=== PATIENT | male | born 1965 | race Caucasian/White ===

== ENCOUNTER 2021-08-08 02:10 | Day surgery (SDC) | payer OTHER, SELFPAY ==
[2021-07-25 14:37] VITALS: BMI 28.7
--- NOTE | 2021-08-08 08:16 | P.PNAN_ITS ---
Anes - Initial Pre Proc Eval Procedure: Operation Date: 08/08/21 09:30 Proposed Procedures p Screening Colonoscopy - Girish Chauhan MD Date/Time: 08/08/21 08:16 Surgeon: Girish Chauhan MD Pre Op Diagnosis: family hx of colon ca Patient Data Age: 55 Gender: M Height: 1.78 m Weight: 90.9 kg Allergies Allergy/AdvReac Type Severity Reaction Status Date / Time meperidine Allergy Unknown Unknown Verified 08/08/21 08:40 Home Medications Medication Instructions Recorded Confirmed Type aspirin 81 mg tablet,delayed 81 mg PO DAILY 11/29/20 07/26/21 History release atorvastatin 10 mg tablet 10 mg PO DAILY #90 tablet 03/07/21 07/26/21 Rx nicotine 14 mg/24 hr daily 1 patch TRANSDERMAL DAILY #84 ea 07/27/21 Rx transdermal patch Patient hx anesthesia problems: none Family hx anesthesia problems: none Results Review: All pre-operative results and documents have been reviewed as part of the pre-operative evaluation. [facility] Past Medical History Medical History (Updated 08/08/21 @ 09:15 by Girish Chauhan MD) Arthritis Cigarette smoker Hyperlipidemia Other and unspecified hyperlipidemia Overweight (BMI 25.0-29.9) Smoker TIA (transient ischemic attack) Family History Family History Mother Patient's mother is in good health Sibling Patient's sister is in good health Patient's brother is in good health Father Cancer Other Asthma Social History Social History Smoking packs per day: 1 Smoking cigarettes per day: 20.0 Years smoked: 35 Smoking pack-years: 35.00 Smoking status: Current every day smoker Tobacco type: cigarettes Second hand tobacco smoke exposure: No Smoking end date: 09/24/18 Alcohol intake: current Alcohol use details: every day Substance use: never Substance use type: does not use Living arrangements: with family Spiritual care concerns: No Anes - Eval Final PreProcedure Day of Procedure 08/08/21 08:16 Patient weight: overweight Heart: regular rate and rhythm Lungs: clear to auscultation and normal air movement Airway: Mallampati scale class II Neurological: alert and oriented Last oral intake: >/= 8 hours ASA classification: III Emergent: no Anesthetic plan: proceed Anesthesia type and monitoring: general GIVS Results Review: All pre-operative results and documents have been reviewed as part of the pre-operative evaluation. Informed Consent: The patient's anesthetic plan and its attendant risks and benefits were discussed with the patient/family/POA. Questions were solicited and answers provided to the satisfaction of the patient/family/POA.
[2021-08-08 08:41] VITALS: BP 112/81; PULSE 90; RESP 20; TEMP 36.3; O2SAT 97; BMI 28.0
[2021-08-08] MEDS: LACTATED RINGERS 1,000 ML 150 ML IV CONT (08:48)
--- NOTE | 2021-08-08 09:14 | WPDGICN ---
Assessment and Plan Assessment and plan (1) Family hx of colon cancer: Code(s): Z80.0 - Family history of malignant neoplasm of digestive organs Status: Acute Assessment and Plan: Patient's father had rectal cancer at age 74. Plan is for patient have screening colonoscopy now and consider this at 5 year intervals in the future. (2) Family history of colonic polyps: Code(s): Z83.71 - Family history of colonic polyps Status: Acute Assessment and Plan: Patient's brother was identified as having colon polyps. Also suggest the patient should continue screening at 5 year intervals. GI Consult Note Consult date/time: 08/08/21 09:14 HPI: Jaylen Tenorio is a 55 year old male Presents for screening colonoscopy. Patient's father had rectal cancer at age 74. Patient reports that his own weight appetite bowel movements are normal. He denies abdominal pain. He has had no bleeding. Reports having had a colonoscopy 10 years ago that was unremarkable. Reports that his brother has been identified as having colon polyps. Patient presents today for screening colonoscopy. Review of Systems Review of Systems: All systems reviewed & are unremarkable except as noted in HPI and below PMFSH Past Medical History Medical History (Updated 08/08/21 @ 09:15 by Girish Chauhan MD) Arthritis Cigarette smoker Hyperlipidemia Other and unspecified hyperlipidemia Overweight (BMI 25.0-29.9) Smoker TIA (transient ischemic attack) Family History Family History Mother Patient's mother is in good health Sibling Patient's sister is in good health Patient's brother is in good health Father Cancer Other Asthma Social History Social History Smoking packs per day: 1 Smoking cigarettes per day: 20.0 Years smoked: 35 Smoking pack-years: 35.00 Smoking status: Current every day smoker Tobacco type: cigarettes Second hand tobacco smoke exposure: No Smoking end date: 09/24/18 Alcohol intake: current Alcohol use details: every day Substance use: never Substance use type: does not use Living arrangements: with family Spiritual care concerns: No Meds Home Medications and Allergies Home Medications Medication Instructions Recorded Confirmed Type aspirin 81 mg tablet,delayed 81 mg PO DAILY 11/29/20 07/26/21 History release atorvastatin 10 mg tablet 10 mg PO DAILY #90 tablet 03/07/21 07/26/21 Rx nicotine 14 mg/24 hr daily 1 patch TRANSDERMAL DAILY #84 ea 07/27/21 Rx transdermal patch Allergies Allergy/AdvReac Type Severity Reaction Status Date / Time meperidine Allergy Unknown Unknown Verified 08/08/21 08:40 Vital Signs Vital Signs - 24 hr 08/08/21 08:41 Temperature 97.3 F L Pulse Rate 90 Respiratory Rate 20 Blood Pressure 112/81 Pulse Oximetry 97 Exam Narrative: Physical exam reveals patient to be alert. Vital signs stable. HEENT exam is unremarkable. Patient is anicteric. Lungs are clear to auscultation and percussion. Heart is without murmur or extra sounds. Abdominal exam bowel sounds are present soft nontender with no organomegaly. Digital external rectal exam is normal.
[2021-08-08 09:37] VITALS: BP 99/64; PULSE 88; RESP 30; O2SAT 96
[2021-08-08 09:47] VITALS: BP 104/71; PULSE 77; RESP 21; O2SAT 96
[2021-08-08 09:56] VITALS: BP 104/71; PULSE 75; RESP 21; O2SAT 97
== END 2021-08-08 10:13 | disposition home or self-care (01) ==
PROVIDERS: PCP Internal Medicine; Visit Provider Internal Medicine Gastroenterology
PROC: 0DJD8ZZ Inspection of Lower Intestinal Tract, Via Natural or Artificial Opening Endoscopic (ICD-10-PCS; CPT 45378; principal; 2021-08-08 09:30)
DX: Z12.11 Encounter for screening for malignant neoplasm of colon (principal); Z80.0 Family history of malignant neoplasm of digestive organs; Z83.71 Family history of colonic polyps; K64.8 Other hemorrhoids; M19.90 Unspecified osteoarthritis, unspecified site; E78.5 Hyperlipidemia, unspecified; Z86.73 Personal history of transient ischemic attack (TIA), and cerebral infarction without residual deficits; F17.210 Nicotine dependence, cigarettes, uncomplicated; Z79.82 Long term (current) use of aspirin
CPT/HCPCS: 45378; J2704; J7120

== ENCOUNTER 2021-09-22 07:54 | Outpatient (CLI) | payer OTHER, SELFPAY ==
--- NOTE | ~2021-09-22 | US_ITS ---
EXAMINATION: US art doppler w teressa GALLOWAY EXAM DATE: 09/22/2021 09:45 INDICATION: L81.9 - Disorder of pigmentation, unspecified Discoloration Of Toes. TECHNIQUE: Segmental pressures and plethysmographic and Doppler waveforms of the brachial and lower e xtremity arteries were obtained. There is no prior study for comparison. FINDINGS: Right and left brachial artery pressures of 137 mm Hg and 138 mm Hg, respectively, are concordant (no rmal difference <= 30 mmHg). The right and left thigh-brachial pressure indices are 1.28, 1.17, resp ectively (normal > 1.2). RIGHT LEG: The ankle-brachial index (SHAHNAZ) is 1.09 (normal >= 0.9-1). The great toe-brachial index (TBI) is 0.71 (normal >= 0.65). The lower extremity ratios, segmental pressure gradients as follows; Proximal superficial femoral artery:- 1.28 (176 mmHg). Distal superficial femoral artery: ----- 1.09 (150 mmHg). Popliteal: 1.40 (193 mmHg). Dorsalis pedis: 1.04 (144 mmHg). Posterior tibial: 1.09 (151 mmHg). (Normal gradients <= 20-30 mmHg between adjacent levels on the same leg or the same levels on the two legs). Arterial waveforms are biphasic. LEFT LEG: The ankle-brachial index (SHAHNAZ) is 1.09 (normal >= 0.9-1). The great toe-brachial index (TBI) is 0.76 (normal >= 0.65). The lower extremity ratios, segmental pressure gradients as follows; Proximal superficial femoral artery:- 1.17 (161 mmHg). Distal superficial femoral artery: ----- 1.20 (165 mmHg). Popliteal: 1.12 (154 mmHg). Dorsalis pedis: 1.09 (151 mmHg). Posterior tibial: 1.07 (147 mmHg). (Normal gradients <= 20-30 mmHg between adjacent levels on the same leg or the same levels on the two legs). Arterial waveforms are biphasic. IMPRESSION: 1. Right ankle-brachial index 1.09, normal. 2. Left ankle-brachial index 1.09, normal. Reviewed, dictated and finalized at location A. NER
== END 2021-09-22 07:55 | disposition home or self-care (01) ==
PROVIDERS: PCP Internal Medicine; Visit Provider Internal Medicine
DX: L81.9 Disorder of pigmentation, unspecified (principal); R09.89 Other specified symptoms and signs involving the circulatory and respiratory systems
CPT/HCPCS: 93923

== ENCOUNTER 2023-04-23 06:47 | Outpatient (CLI) | payer OTHER, SELFPAY ==
--- NOTE | ~2023-04-23 | CT_ITS ---
CT Scan of the Chest without Contrast: Clinical Indication: Lung cancer screening, current smoker Technique: Contiguous sections were acquired throughout the chest without intravenous contrast. Dose reduction technique was used on this scan by utilizing automated exposure control and iterative recon struction technique. The dose-length product (DLP) was 211.67 mGy-cm. Findings: There is no evidence of any significant mediastinal, hilar or axillary lymphadenopathy. The mediastin al soft tissues appear normal. There is no evidence of pleural or pericardial effusion. The lungs are clear. No pulmonary nodules or infiltrates are noted. Images through the upper abdomen reveal no abnormalities. Impression: Lung RADS 1: Negative. 12 month follow-up screening CT advised. Reviewed, dictated and finalized at location . Impression: Lung RADS 1: Negative. 12 month follow-up screening CT advised.
== END 2023-04-23 06:48 | disposition home or self-care (01) ==
PROVIDERS: PCP Internal Medicine; Visit Provider Internal Medicine
DX: Z12.2 Encounter for screening for malignant neoplasm of respiratory organs (principal); F17.210 Nicotine dependence, cigarettes, uncomplicated
CPT/HCPCS: 71271

== ENCOUNTER 2024-03-31 09:31 | Outpatient (CLI) | payer OTHER, SELFPAY ==
--- NOTE | ~2024-03-31 | XR_ITS ---
Right elbow Technique: AP, oblique, and lateral views were obtained. Clinical History: Pain Findings: No acute fracture or dislocation is seen. Osseous alignment is anatomic. Joint spaces are p reserved. There is no displacement of the fat pads, and soft tissues are unremarkable. Impression: Unremarkable radiographs. Reviewed, dictated and finalized at location . Impression: Unremarkable radiographs.
== END 2024-03-31 09:32 | disposition home or self-care (01) ==
PROVIDERS: PCP Physician Assistant; Visit Provider Internal Medicine
DX: M25.521 Pain in right elbow (principal)
CPT/HCPCS: 73080